=== PATIENT | female | born 1995 | race Asian ===

== ENCOUNTER 2019-02-07 13:57 | Emergency (ER) | payer OTHER ==
--- NOTE | 2019-02-07 14:02 | UC ---
Respiratory Complaint HPI - HPI Summary HPI Summary: Patient is are 23 year old woman , who present today to the urgent care with cough for past 7 days. cough is productive of phlegm at times but not always. she reports that her throat hurts with swallowing. she does have chest pain from coughing but denies any shortness of breath No fevers at home. She has many sick contacts with family visiting her having similar symptoms. Denies any reflux or heart burn Denies any specific allergies to anything.Denies any abdominal pain , nausea or vomiting , diarrhea or constipation. - History of Current Complaint Stated Complaint: COUGH X7DAY Time Seen by Provider: 02/07/19 14:00 Hx Obtained From: Patient Hx Last Menstrual Period: 11/26/14 - Allergies/Home Medications Allergies/Adverse Reactions: Allergies Allergy/AdvReac Type Severity Reaction Status Date / Time No Known Allergies Allergy Verified 02/07/19 14:06 PMH/Surg Hx/FS Hx/Imm Hx - Additional Past Medical History Additional PMH: no significant past medical history Previously Healthy: Yes - Surgical History Surgical History: None - Social History Alcohol Use: None Substance Use Type: None Smoking Status (MU): Never Smoked Tobacco - Immunization History Most Recent Influenza Vaccination: 2014 Review of Systems All Other Systems Reviewed And Are Negative: Yes Constitutional: Positive: Negative Skin: Positive: Negative Eyes: Positive: Negative ENT: Positive: Negative Respiratory: Positive: Cough - productive Cardiovascular: Positive: Negative, Chest Pain - due to coughing Gastrointestinal: Positive: Negative Genitourinary: Positive: Negative Motor: Positive: Negative Neurovascular: Positive: Negative Musculoskeletal: Positive: Negative Neurological: Positive: Negative Psychological: Positive: Negative Is Patient Immunocompromised?: No Physical Exam - Summary Physical Exam Summary: Physical Exam: Const: Appears well. No signs of apparent distress present. Alert and oriented x 3. Musculo: Walks with a normal gait. Head/Face: Atraumatic, normocephalic on inspection. Eyes: EOMI and PERRLA in both eyes. Conjunctivae clear. No discharge noted ENT: Hearing normal, TM normal appearing bilaterally No tenderness to palpation on maxillary and frontal sinus. minimal pharyngeal erythema if any without any exudates. Uvula is midline. left anterior cervical / submandibular lymphadenopathy noted- nontender Respiratory: Respirations are unlabored. Lungs clear to auscultation bilaterally, no wheezing , rhonchi or rales noted . CVS: Regular rate and Rhythm, S1S2 normal , no murmurs identified. Extremities: Peripheral circulation is grossly normal. Pulses 2+ Abdomen : Soft non tender , nondistended , Bowel sounds present . No guarding , rebound tenderness or rigidity noted. Skin: No lesions or rash located on the upper extremities or on the lower extremities. Neuro: Cranial nerves II to XII intact, motor and sensory intact. DTR Intact bilaterally. Mood is normal. Affect is normal. Triage Information Reviewed: Yes Vital Signs Reviewed: Yes Respiratory Course/Dx - Course Course Of Treatment: During the visit today, we obtained rapid strep test which was neg . Suspect atypical pneumonia. she is travelling out of town in 2 days to [place] We discussed the findings and further plan. I will prescribe the medication to the pharmacy . Patient expressed understanding . - Differential Dx/Diagnosis Provider Diagnosis: Atypical pneumonia Discharge - Sign-Out/Discharge Documenting (check all that apply): Patient Departure All imaging exams completed and their final reports reviewed: No Studies - Discharge Plan Condition: Stable Disposition: HOME Prescriptions: Azithromyxin RAMONA (NF) [Z-Ramona (Zithromax) 250 mg tabs #6] 2 tab PO .TODAY, THEN 1 DAILY #6 tab Benzonatate CAP* [Tessalon 100 MG CAP*] 100 mg PO TID PRN 10 Days #30 cap PRN Reason: Cough Patient Education Materials: Pneumonia (ED) Referrals: Kalie Haynes NP [Primary Care Provider] - 1 Week Additional Instructions: Please start taking the medication as prescribed to the pharmacy . Follow up with your primary care doctor in 1 week. Return to Urgent care / ER if symptoms get worse. - Billing Disposition and Condition Condition: STABLE Disposition: Home
[2019-02-07 14:06] VITALS: BP 99/54
== END 2019-02-07 14:42 | disposition home or self-care (01) ==
LOC: UCEAST 13:57
DX: J18.9 Pneumonia, unspecified organism (principal)
CPT/HCPCS: 87651; 99212; G0463